=== PATIENT | male | born 1960 | race Caucasian/White ===

== ENCOUNTER 2018-06-07 06:00 | Day surgery (SDC) | payer BC ==
[~2018-06-07 06:00] MED LIST: ACETAMINOPHEN 1,000 MG/100 ML BTL IV ONE; CEFAZOLIN 2 Gram 2 GM/50 ML BAG IVPB ONE
[2018-06-07] MEDS ORDERED: FENTANYL PF 100MCG/2ML VIAL IV ONE (06:01)
[2018-06-07] MEDS ORDERED: EPINEPHRINE 1 MG/ML AMPUL SQ ONE (06:01)
[2018-06-07] MEDS ORDERED: KETOROLAC 30 MG/ML VIAL IVP ONE (06:01)
[2018-06-07] MEDS ORDERED: MIDAZOLAM HCL 2MG/2ML VIAL IV ONE (06:01)
[2018-06-07] MEDS ORDERED: LIDOCAINE 2% MDV (20MG/ML) 20ML VIAL IV ONE (06:01)
[2018-06-07] MEDS ORDERED: BUPIVACAINE 0.5% (5MG/ML) PF 30ML VIAL IVP ONE (06:01)
[2018-06-07] MEDS ORDERED: BUPIVACAINE 0.5% W/EPI MPF 30 ML VIAL IVP ONE (06:01)
[2018-06-07] MEDS ORDERED: PROPOFOL 10 MG/ML VIAL IV ONE (06:01)
[2018-06-07] MEDS ORDERED: BUPIVACAINE LIPOSOME/PF 133MG/10ML VIAL IV ONE (06:01)
[2018-06-07] MEDS ORDERED: DEXAMETHASONE 4 MG/ML 1ML VIAL IVP ONE (06:01)
--- NOTE | 2018-06-07 18:13 | Operative Note ---
DATE OF SURGERY: 06/07/2018. PREOPERATIVE DIAGNOSES: 1. RIGHT SHOULDER ROTATOR CUFF TEAR. 2. ACROMIOCLAVICULAR JOINT ARTHROSIS. POSTOPERATIVE DIAGNOSES: 1. RIGHT SHOULDER ROTATOR CUFF TEAR. 2. ACROMIOCLAVICULAR JOINT ARTHROSIS. 3. TYPE II SLAP LESION. OPERATION: 1. DIAGNOSTIC ARTHROSCOPY. 2. ARTHROSCOPIC ACROMIOPLASTY. 3. ARTHROSCOPIC EXCISION DISTAL CLAVICLE. 4. ARTHROSCOPIC PARTIAL THICKNESS HIGH-GRADE ROTATOR REPAIR. 5. ARTHROSCOPIC DEBRIDEMENT, EXTENSIVE DEBRIDEMENT LABRUM AND ROTATOR CUFF BONE. TYPE II SLAP LESION. 6. ARTHROSCOPIC BICEPS TENODESIS. SURGEON: ZABRINA BUCKLEY M.D. ANESTHESIA: INTERSCALENE BLOCK, VOLUNTEER RECRUITMENT COORDINATOR. COMPLICATIONS: NONE. ESTIMATED BLOOD LOSS: MINIMAL. OPERATIVE FINDINGS: A type II SLAP lesion, partial tear biceps tendon, high- grade partial thickness tear rotator cuff involving about 80% of the width of the tendon insertion and about 2 cm long. AC joint arthrosis. COMPONENTS PLACED: One [employer] 5.5 mm Regenesorb anchor with two #2 Ultrabraid sutures. INDICATIONS FOR OPERATION: This is an 57-year-old male who is well-known to myself and status post ultrasound showed a partial high-grade thickness tear, AC joint arthrosis. He has failed nonoperative treatment, anti-inflammatory injection, and therapy and scheduled for the procedure above. I explained to him the risks and benefits of surgery in detail for the diagnosis and procedures including but not limited to infection, nerve injury, vessel injury, persistent pain, stiffness, numbness and tingling in his shoulder, retear of his rotator cuff, and the need for further procedures. All of his questions were answered. The treatment and course were outlined and he agreed to proceed. PROCEDURE: The patient brought to the O.R. and placed in the beach chair position, and prepared for surgery. No general endotracheal anesthesia was utilized. Patient refused that and we had a long-lasting Exparel interscalene block mask and sedation and his right upper extremity and shoulder were prepped and draped in sterile fashion. The right shoulder was prepped again with ChloraPrep and draped. Intraoperative time out was performed. Next, the glenohumeral joint, subacromial space, and AC joint were injected with 0.5% Marcaine with Epi. A standard posterior arthroscopic portal was established 2 cm inferior and 1 cm medial to the posterolateral corner of the acromion. An anterior portal was established through the rotator interval under direct visualization and diagnostic arthroscopy was performed The biceps tendon was partially torn. The anterior superior labrum was torn, type 2 SLAP lesion. I medially debrided back the loose labrum flap to a smooth stable surface. Plan a biceps tenodesis. The posterior superior labrum was normal. The axillary recess was normal. The posterior inferior labrum was normal. The glenohumeral head and articular cartilage were normal. The undersurface of the rotator cuff was thoroughly inspected. There was a high- grade partial thickness tear seen from mild tensile failure involving the supraspinatus and infraspinatus tendons about a 2 cm long area by about 80% of the width and we medially debrided back the tear site to a smooth stable surface lightly to prepare for rotator cuff repair. We planned on using a partial thickness repair technique and the upper bicipital groove was debrided as well to incorporate that in the biceps tenodesis. The barrier was normal. The superior and middle glenohumeral was intact. The subscapular tendon and subscapular recess were normal. The anterior and inferior labrum and glenohumeral ligaments were normal. Next, and anterior portal and subacromial portal were established. A tissue blade was inserted into the anterior subacromial portal. Subacromial bursectomy was performed. I outlined the anterior lateral edge of the acromion and coracoacromial ligament and completely opened up the inferior acromioclavicular joint capsule. Next, the lateral portal was established off the posterior margin of the acromioclavicular joint and a 5.5 mm barrel bur was inserted there. We took off strips of bone working from lateral to medial, anterior to posterior converting the type II acromion to a planar surface. We rasped the smooth subacromial surface and verified it was flat with the probe from the posterior portal. Next, inserted the bur in the anterior portal. We burred down the medial acromial facet. We resected the distal clavicle 1 cm. We made a small stab incision superior to the AC joint. We inserted the shaver there and smoothed both bony surfaces to verify the AC joint was completely free of any bony impingement and bony fragments. Next, we resected the bursa thoroughly around the periphery of the bursal surface of the rotator cuff and thoroughly inspected it and that was intact. Next, established an accessory anterolateral portal using a spinal needle and made a small incision there and inserted a disposable cannula and then inserted the scope posteriorly interarticularly. I abducted and externally rotated the shoulder and then localized the entry point for a rotator cuff anchor. I made a small stab incision off the acromion edge and inserted the punch tap to prepare the hole at the articular margin prepared bone bed. Next, we penetrated through full-thickness rotator cuff tissue in the anterior supraspinatus through the biceps tendon, grasped a loop of suture, brought it back through the other side of the biceps. We released the loop, placed the penetrator back through the loop, and pulled that suture through that loop creating a lasso suture there for biceps tenodesis. The remainder of the three sutures we passed in a simple fashion working from anterior and posterior covering the entire site with two mattress sutures now. We then tied those sutures down in the bursal surface over the top using first a Revo knot for the anterior suture. It was backed up to reverse it on the post throws and then a taut-line hitch backed up with three RHAPS. The knots were probed and were stable and secure. We directly visualized interarticularly on cut and released the biceps tendon from the labrum, debrided both edges, directly visualized the rotator cuff. The footprint was nicely re-established tight down to the prepared bone bed. This completed our procedures. The scope and equipment were removed. The scope incisions were covered with Xeroform gauze. A sterile dressing was applied. UltraSling. He received Toradol IV. The patient tolerated the procedures well. No intraoperative complications. Sponge, needle, and blade counts correct. Recovery Room stable, neurovascularly intact. He will be discharged as an outpatient and follow-up in two weeks. cc: Dr. Noble Argueta JOB NUMBER: [id number] MTDD
== END 2018-06-07 10:30 | disposition home or self-care (01) ==
LOC: SUR 06:00
PROVIDERS: ATTEND Orthopaedic Surgery
DX: M75.111 Incomplete rotator cuff tear or rupture of right shoulder, not specified as traumatic (principal); M19.011 Primary osteoarthritis, right shoulder; S43.431A Superior glenoid labrum lesion of right shoulder, initial encounter
CPT/HCPCS: 29805; 29823; 29828; 29827; 29824; 29807; 01630; 64415; J1885; J3010; J0690; C9290; 76942; C1713; J0171